=== PATIENT | male | born 1945 | race Hispanic/Latino ===

== ENCOUNTER 2021-07-18 14:27 | Emergency (ER) | payer OTHER ==
[~2021-07-18] VITALS: Ht 185.4 cm; Wt 86.2 kg
[2021-07-18 14:30] VITALS: BP 155/73
[2021-07-18 15:06] LABS: BASOPHILS % (AUTO) 0.3 % (0.0-5.0); HEMATOCRIT 43.9 % (42-54); LYMPHOCYTES % (AUTO) 21.3 % (21.0-51.0); MEAN CORPUSCULAR HEMOGLOBIN 29.1 pg (27.0-33.0); MEAN CORPUSCULAR HGB CONC 32.8 g/dL (32.0-36.0); MEAN CORPUSCULAR VOLUME 88.7 fL (79-99); MONOCYTES % (AUTO) 7.4 % (3.0-13.0); NEUTROPHILS % (AUTO) 69.7 % (40.0-77.0); PLATELET COUNT (AUTO) 275 K/uL (130-400); RED BLOOD CELL COUNT(AUTO) 4.95 MIL/uL (4.50-6.20); RED CELL DISTRIBUTION WIDTH 13.8 % (11.0-15.5); WHITE BLOOD COUNT (AUTO) 9.2 K/uL (4.8-10.8)
[2021-07-18 15:15] LABS: CREATININE 1.2 mg/dL (0.5-1.5)
[2021-07-18 15:17] LABS: INR 1.02 (0.85-1.15); PROTHROMBIN TIME 11.1 SEC (9.6-11.6)
[2021-07-18 15:20] LABS: ALBUMIN 3.7 g/dL (3.5-5.0); BILIRUBIN,TOTAL 0.4 mg/dL (0.2-1.0); TOTAL PROTEIN, SERUM 7.8 g/dL (6.0-8.3)
[2021-07-18] MEDS ORDERED: CLOP75TA14 PO (18:04)
[2021-07-18] MEDS ORDERED: ATOR20TA PO (18:04)
[2021-07-18] MEDS ORDERED: CLOPIDOGREL 75MG TAB PO SCH (19:00)
== END 2021-07-18 18:41 | disposition home or self-care (01) ==
LOC: EDH 14:27
DX: I70.222 Atherosclerosis of native arteries of extremities with rest pain, left leg (principal); F17.210 Nicotine dependence, cigarettes, uncomplicated; Z79.02 Long term (current) use of antithrombotics/antiplatelets
CPT/HCPCS: 36415; 80053; 82550; 85025; 85610; 85730; 93005; 93926